=== PATIENT | female | born 1970 | race Caucasian/White ===

== ENCOUNTER 2022-02-21 11:52 | Emergency (ER) | payer MEDICAID, SELFPAY ==
[2022-02-21] VITALS (58 sets, daily range): BP systolic 103–133; BP diastolic 66–75; PULSE 55–104; RESP 12–29; O2SAT 92–100; BMI 20.1
--- NOTE | 2022-02-21 11:55 | XRR_ITS ---
PROCEDURE INFORMATION: Exam: XR Chest Exam date and time: 02/21/2022 12:09 PM Age: 52 years old Clinical indication: Pain; Other: Not specified; Additional info: Chest pain TECHNIQUE: Imaging protocol: Radiologic exam of the chest. Views: 1 view. COMPARISON: No relevant prior studies available. FINDINGS: Lungs: The lungs are overinflated consistent with pulmonary emphysema. No acute pulmonary infiltrates are seen. Pleural spaces: Unremarkable. No pleural effusion. No pneumothorax. Heart/Mediastinum: Unremarkable. No cardiomegaly. Bones/joints: Unremarkable. XR/XR chest 1V portable [id number] IMPRESSION: Pulmonary emphysema. No acute chest abnormality.
--- NOTE | 2022-02-21 11:56 | ECG_ITS ---
[facility] Test Date: 2022-02-21 Pat Name: Iliana Pete Department: Room: Gender: Female Blow Down Helper: : 1970 Requested By: Sukhi Martin Order Number: [id number] Rahat MD: Goldie Mcallister M.D. Measurements Intervals [place] Rate: 60 P: 69 [place]: 126 QRS: 71 QRSD: 78 T: 69 QT: 383 QTc: 384 Interpretive Statements SINUS RHYTHM POSSIBLE LEFT ATRIAL ENLARGEMENT [-0.1mV P-WAVE IN V1/V2] POSSIBLE RIGHT VENTRICULAR CONDUCTION DELAY [RSR (QR) IN V1/V2] ANTEROSEPTAL MYOCARDIAL INFARCTION , OF INDETERMINATE AGE [40+ ms Q WAVE IN V1-V4] No previous ECG available for comparison Electronically Signed On 02-21-2022 21:45:52 CDT by Goldie Mcallister M.D. [id number]
--- NOTE | 2022-02-21 11:56 | ED_ITS ---
HPI - Chest Pain General: Chief Complaint: Chest Pain Stated Complaint: chest pain Time Seen by Provider: 02/21/22 11:55 Source: patient Mode of arrival: ambulatory History of Present Illness: 52-year-old female with a history of coronary disease presents emergency room with complaint of substernal chest pain that woke her up this morning at 9 AM radiating to her left arm. She was given sublingual nitro and 324 of aspirin in route by EMS reports relief of chest pain. She has no chest pain at the time I seen the patient but she still has what she describes as a little pressure. No vomiting no nauseousness she had dyspnea and the radiation of pain earlier. She tells me about 2 years ago she had stents placed at [facility] after an episode of chest pain. She is unsure if she has had any stress testing since that time. Patient is not diabetic she does smoke is a history hypertension hyperlipidemia MD complaint: chest pain Pertinent past history: coronary artery disease Onset (ago): minute(s) Prior episodes: Yes Onset: during rest Pain location: substernal and left chest Pain radiation: left arm Severity: moderate Quality: sharp Relieving factors: nitroglycerin Exacerbating factors: nothing Associated symptoms: Deny abdominal pain, diaphoresis, dyspnea, fever(s), leg edema, nausea, palpitations, sense of impending doom, syncope or vomiting Treatment prior to arrival: none Review of Systems Const: Denies: fever(s), chills, fatigue, malaise or diaphoresis ENMT: Denies: throat pain, ear or mastoid pain, nasal discharge or nasal congestion Card: Reports: chest pain; Denies: palpitations, irregular heart rhythm, edema or syncope Resp: Denies: dyspnea GI: Denies: abdominal pain, nausea or vomiting : Denies: flank pain, difficulty voiding, dysuria, urinary frequency or urinary urgency Skin/Breast: Denies: rash or pruritus [facility] ED PFSH: Medical History (Updated 02/21/22 @ 17:19 by Sukhi Arevalo DO) CAD (coronary artery disease) HTN (hypertension) Hyperlipidemia Social History (Updated 02/21/22 @ 12:51 by Sukhi Arevalo DO) Smoking and tobacco status: current every day smoker Alcohol intake: unknown Physical Exam Const: GENERAL APPEARANCE: cooperative and comfortable ORIENTATION/CONSCIOUSNESS: Yes awake, Yes oriented to person, Yes oriented to place and Yes oriented to time HENMT: COMMON NORMALS: normocephalic, atraumatic and hearing grossly normal bilaterally HEAD & SCALP: normocephalic and atraumatic Resp: COMMON NORMALS: normal respiratory effort, No retractions, No use of accessory muscles and clear to auscultation bilaterally AUSCULTATION: clear to auscultation bilaterally Cardio: COMMON NORMALS: regular rate, regular rhythm and No murmurs present (Cardio) RATE: regular rate RHYTHM: regular rhythm GI: COMMON NORMALS: Soft to palpation and No hepatosplenomegaly present AUSCULTATION: Yes normoactive bowel sounds PALPATION: Yes Soft to palpation, No Tenderness to palpation present (GI), No Guarding due to palpation present (GI) and Yes No hepatosplenomegaly present Extremity: COMMON NORMALS: normal to inspection, capillary refill normal, no clubbing, cyanosis or edema, no calf tenderness and no pedal edema Neuro: SENSORIUM/ORIENTATION: Yes oriented to person, Yes oriented to place and Yes oriented to time Skin: COMMON NORMALS: no rashes or lesions noted GENERAL SKIN EXAM: no rashes or lesions noted Course Vital Signs: Vital signs: Vital Signs Pulse Rate 70 02/21/22 17:53 Respiratory Rate 18 02/21/22 17:53 Blood Pressure 127/73 02/21/22 17:53 Pulse Oximetry 94 02/21/22 17:53 Oxygen Delivery Me thod 02/21/22 11:55 Oxygen Flow Rate 3 02/21/22 11:55 MDM - Chest Pain Medical Decision Making EKG and cardiac enzymes are negative. Patient is pain-free at this time. We did get a copy of her Supply Chain Technician report from 3 months ago at [facility]. I reviewed it with Dr. Johnson who is on-call. Given the Supply Chain Technician report normal EKG and normal cardiac enzymes he recommended patients such as her to start isosorbide mononitrate and have her follow-up as an outpatient. Discussed with the patient part of the reasoning is at this point the Supply Chain Technician report shows relatively nor mal coronary arteries there is nothing we would be likely to intervene on when they did the cath they were not able to intervene on anything at that time it is unlikely in such a short period of time that anything is changed significantly she is no longer having symptoms. Dr. Johnson felt that in a patient like her repeating a cath this soon after the previous one with normal labs and resolved symptoms would not likely be helpful and stress test would also not likely be particularly helpful. Reviewed this with the patient she was comfortable proceeding with this she is advised to return to emergency room if she has any further chest pain was started on isosorbide mononitrate I also added Plavix 75 daily she previously had been on that and had been stopped. Given her history of having stents I think she would be well served by being blocked back on her Plavix. We will try to get her set up to see cardiology clinic here in town she just recently moved here. If she has recurrence of symptoms she was strongly encouraged to return immediately. Differential Diagnosis Likely acute massive pulmonary embolism and acute myocardial infarction Medical Records I reviewed the patient's medical records. Lab Data I reviewed the patient's lab results. : 02/21/22 13:48 02/21/22 13:48 Radiology Impressions Chest X-Ray 02/21/22 11:55 IMPRESSION: Pulmonary emphysema. No acute chest abnormality. Laboratory Results WBC 11.0 10^3/uL (4.0-10.0) H 02/21/22 13:48 RBC 4.77 10^6/uL (4.1-5.3) 02/21/22 13:48 Hgb 15.7 g/dL (11.5-15.3) H 02/21/22 13:48 Hct 45.7 % (37.0-47.0) 02/21/22 13:48 MCV 95.8 fl (81-99) 02/21/22 13:48 MCH 32.9 pg (28.0-34.0) 02/21/22 13:48 MCHC 34.4 g/dL (30.0-36.0) 02/21/22 13:48 RDW 12.7 % (12.1-15.1) 02/21/22 13:48 Plt Count 286 10^3/cmm (130-400) 02/21/22 13:48 MPV 9.6 fL (7.4-10.4) 02/21/22 13:48 Neut % (Auto) 77.3 % 02/21/22 13:48 Lymph % (Auto) 15.6 % 02/21/22 13:48 Emanuel % (Auto) 5.6 % 02/21/22 13:48 Eos % (Auto) 0.4 % 02/21/22 13:48 Baso % (Auto) 0.6 % 02/21/22 13:48 Neut # (Auto) 8.51 10^3/uL (1.8-7.7) H 02/21/22 13:48 Lymph # (Auto) 1.7 10^3/uL (0.8-4.8) 02/21/22 13:48 Emanuel # (Auto) 0.6 10^3/uL (0.2-0.9) 02/21/22 13:48 Eos # (Auto) 0.0 10^3/uL (0.0-0.8) 02/21/22 13:48 Baso # (Auto) 0.1 10^3/uL (0.0-0.1) 02/21/22 13:48 Nucleated RBC % (auto) 0 % 02/21/22 13:48 Nucleated RBCs # 0.0 /100WBC 02/21/22 13:48 Sodium 138 mmol/L (136-145) 02/21/22 13:48 Potassium 4.8 mmol/L (3.5-5.1) 02/21/22 13:48 Chloride 102 mmol/L (98-107) 02/21/22 13:48 Carbon Dioxide 23 mmol/L (22-29) 02/21/22 13:48 Anion Gap 17.8 (5-19) 02/21/22 13:48 BUN 9 mg/dL (6-20) 02/21/22 13:48 Creatinine 0.6 mg/dL (0.5-0.9) 02/21/22 13:48 GFR Calculation 104.6 mL/min (90-130) 02/21/22 13:48 Glucose 86 mg/dL (65-115) 02/21/22 13:48 Calculated Osmolality 284 mOsm/kg (285-295) L 02/21/22 13:48 Calcium 9.2 mg/dL (8.5-10.5) 02/21/22 13:48 Troponin T Baseline 9 ng/L (0-10) 02/21/22 13:48 Troponin T 120 Minute 8.71 ng/L (0-10) 02/21/22 16:03 Delta Troponin T -0.29 ABS# (0-10) L 02/21/22 16:03 Discharge Plan Discharge Patient Disposition: Home Clinical Impression: Chest pain, CAD (coronary artery disease), HTN (hypertension) Condition: Stable Prescriptions: New isosorbide mononitrate 30 mg tablet extended release 24 hr 30 mg PO DAILY Qty: 30 0RF clopidogrel 75 mg tablet 75 mg PO DAILY Qty: 30 0RF No Action Aspir-81 81 mg Tablet,Delayed Release (Dr/Ec) 81 mg PO BEDTIME Prilosec 20 mg Capsule,Delayed Release(Dr/Ec) 20 mg PO BEDTIME metoprolol succinate 25 mg Tablet Extended Release 24 Hr 25 mg PO BEDTIME albuterol sulfate 90 mcg/actuation Hfa Aerosol Inhaler 2 puff INHALATION QID PRN (Reason: Shortness Of Breath) Zetia 10 mg Tablet 10 mg PO BEDTIME Crestor 40 mg Tablet 40 mg PO BEDTIME budesonide-formoterol 80-4.5 mcg/actuation Hfa Aerosol Inhaler 1 puff INHALATION BID Discharge Orders: Discharge ED (Routine); Ordered 02/21/22 Ordered By: Sukhi Arevalo Discharge Diet: Usual diet Discharge Activity: Limit activity as instructed Patient Instructions: Opioid Safety, Pain Management Activity Restrictions/Additional Instructions: Continue baby aspirin daily start Plavix 75 once daily and isosorbide mononitrate 30 mg once daily. Case management will call and make you an appointment with the cardiology clinic at [facility]. If you have worsening symptoms return to the emergency room Coding Level of Care Code ED Underground Conduit Installer for Evonne Rousseau Exam Detailed
--- NOTE | 2022-02-21 12:12 | PC.NURSE ---
pt reports substernal chest pain and pressure that radiates through to her back. describes as aching, began worsening around 0830 this morning and has progressively worsened. pt reports initially had chest pressure that woke her up around 0530. reports nausea and vomiting, dizziness, and lightheadedness. also reports dyspnea that has resolved. lung sounds clear bilat
--- NOTE | 2022-02-21 13:02 | PC.NURSE ---
pt reports had a total of 324mg ASA prior to arrival. Pt c/o returning chest pain, Dr. Arevalo notified. New orders being placed
[2022-02-21] MEDS: ondansetron 2 mg/ML SDV 2 mL 4 MG IVP (13:11)
[2022-02-21] MEDS: morphine 4 mg/mL SDV 1 mL 2 MG IVP ×2 (13:18→16:39)
[2022-02-21] MEDS: nitroglycerin 1 gm/inch oint Pkt 1 INCH TOPICAL (13:23)
--- NOTE | 2022-02-21 13:35 | PC.NURSE ---
attempted venipuncture to obtain labs x2.
--- NOTE | 2022-02-21 13:48 | PC.NURSE ---
called lab for blood draw
[2022-02-21] MEDS: SODIUM CHLORIDE 0.9% 1700.97 ML IV (13:55)
--- NOTE | 2022-02-21 13:56 | ECG_ITS ---
[facility] Test Date: 2022-02-21 Pat Name: Iliana Pete Department: Room: Gender: Female Food And Beverage Controller: : 1970 Requested By: Sukhi Martin Order Number: [id number] Rahat MD: Goldie Mcallister M.D. Measurements Intervals [place] Rate: 55 P: 67 [place]: 129 QRS: 75 QRSD: 82 T: 74 QT: 417 QTc: 402 Interpretive Statements SINUS BRADYCARDIA POSSIBLE LEFT ATRIAL ENLARGEMENT [-0.1mV P-WAVE IN V1/V2] POSSIBLE RIGHT VENTRICULAR CONDUCTION DELAY [RSR (QR) IN V1/V2] ANTEROSEPTAL MYOCARDIAL INFARCTION , OF INDETERMINATE AGE [40+ ms Q WAVE IN V1-V4] No previous ECG available for comparison Electronically Signed On 02-21-2022 21:54:09 CDT by Goldie Mcallister M.D. [id number]
[2022-02-21 13:58] LABS: Basophils # 0.1 10^3/uL (0.0-0.1); Basophils % 0.6 %; Eosinophils % 0.4 %; Hematocrit 45.7 % (37.0-47.0); Hemoglobin 15.7 g/dL (11.5-15.3); Lymphocytes # 1.7 10^3/uL (0.8-4.8); Lymphocytes % 15.6 %; Mean Corpuscular HGB Conc 34.4 g/dL (30.0-36.0); Mean Corpuscular Hemoglobin 32.9 pg (28.0-34.0); Mean Corpuscular Volume 95.8 fl (81-99); Mean Platelet Volume 9.6 fL (7.4-10.4); Monocytes # 0.6 10^3/uL (0.2-0.9); Monocytes % 5.6 %; Neutrophils # 8.51 10^3/uL (1.8-7.7); Neutrophils % 77.3 %; Nucleated Red Blood Cells % 0 %; Platelet Count 286 10^3/cmm (130-400); Red Blood Count 4.77 10^6/uL (4.1-5.3); Red Cell Distribution Width 12.7 % (12.1-15.1)
[2022-02-21 14:19] LABS: Troponin(5th) Baseline 9 ng/L (0-10)
[2022-02-21 14:20] LABS: Anion Gap 17.8 (5-19); Blood Urea Nitrogen 9 mg/dL (6-20); Calcium 9.2 mg/dL (8.5-10.5); Carbon Dioxide 23 mmol/L (22-29); Chloride 102 mmol/L (98-107); Glomerular Filtration Rate 104.6 mL/min (90-130); Glucose 86 mg/dL (65-115); Osmolality Calculated 284 mOsm/kg (285-295); Potassium 4.8 mmol/L (3.5-5.1); Sodium 138 mmol/L (136-145)
[2022-02-21 16:36] LABS: Troponin 5 2HR 8.71 ng/L (0-10)
[2022-02-21 17:03] LABS: Troponin 5 2HR Delta -0.29 ABS# (0-10)
--- NOTE | 2022-02-22 08:29 | DCPLANNER ---
Addendum entered by Annie Johnson 04/28/22 11:39: Patient had a follow up appointment scheduled with heart care - appointment was cancelled Addendum entered by Annie Johnson 02/24/22 13:08: Patient has a follow up appointment scheduled for Sunday, April 19, 2022 at 2:[address] Ta at [facility]. Clinic will call patient with appointment information. Original Note: manager mobility had message to schedule a follow up appointment for patient with cardiology. manager mobility sent patients information to the front office staff heart care. Patients information will be printed and reviewed. Clinic will call patient with appointment information.
== END 2022-02-21 17:56 | disposition home or self-care (01) ==
PROVIDERS: Emergency Provider Family Medicine
DX: R07.9 Chest pain, unspecified (principal); I25.10 Atherosclerotic heart disease of native coronary artery without angina pectoris; I10 Essential (primary) hypertension; Z79.82 Long term (current) use of aspirin; E78.5 Hyperlipidemia, unspecified; F17.210 Nicotine dependence, cigarettes, uncomplicated
CPT/HCPCS: 36415; 71045; 80048; 84484; 85025; 93005; 96374; 96375; 96376; 99285; J2270; J2405; J7030

== ENCOUNTER 2022-05-18 09:30 | Inpatient (IN) | payer MEDICAID, SELFPAY ==
[2022-05-18] VITALS (90 sets, daily range): BP systolic 111–156; BP diastolic 64–89; PULSE 77–108; RESP 15–36; TEMP 36.8–37.6; O2SAT 84–96; BMI 20.9
--- NOTE | 2022-05-18 09:48 | XR_ITS ---
WS: [id number] Exam: XR chest 1V portable [id number] Date/Time of Exam: 05/18/2022 9:55 AM Reason For Exam: dyspnea/cough Comparison 02/21/2022. Small infiltrate is noted in the left lower lung zone suspicious for pneumonia. Remaining lungs are c lear and hyperinflated. Normal cardiomediastinal silhouette. No pleural effusions. Regional bony [place] ents are intact. XR/XR chest 1V portable [id number] IMPRESSION: 1. Small infiltrate in the left lower lung zone suspicious for pneumonia.
--- NOTE | 2022-05-18 10:00 | ECG_ITS ---
[facility] Test Date: 2022-05-18 Pat Name: Iliana Pete Department: Room: Gender: Female Elastic Assembler: : 1970 Requested By: Sukhi Martin Order Number: [id number] Rahat MD: Bette Tucker M.D. Measurements Intervals [place] Rate: 93 P: 79 [place]: 123 QRS: 83 QRSD: 73 T: 79 QT: 340 QTc: 423 Interpretive Statements SINUS RHYTHM POSSIBLE RIGHT VENTRICULAR CONDUCTION DELAY [RSR (QR) IN V1/V2] ANTEROSEPTAL MYOCARDIAL INFARCTION , OF INDETERMINATE AGE [40+ ms Q WAVE IN V1-V4] Compared to ECG 02/21/2022 13:40:39 Sinus bradycardia no longer present Myocardial infarct finding still present Electronically Signed On 05-18-2022 15:59:31 SUBCONTRACTS MANAGER by Bette Tucker M.D. [id number]
--- NOTE | 2022-05-18 10:11 | W.ED.SEIZURE ---
HPI - Seizure General: Chief Complaint: Seizure Stated Complaint: SEIZURE & CP Time Seen by Provider: 05/18/22 09:44 Source: patient Mode of arrival: EMS History of Present Illness: HPI Narrative: 52-year-old female presents emergency room with complaints of multiple seizures since 2 AM this morning. States she has a history of seizure disorder but she has not taken any medicines for about 5 years she was previously on Keppra. She does drink she reports drinking 5-6 shots per day plus several beers she did drink this morning because she thought she was not feeling well due to not having drank any alcohol. She has not previously had seizures specifically related to alcohol withdrawal. She denies any hematochezia melena hematemesis cough cramps no history of known alcoholic cirrhosis esophageal varices or upper GI bleeds. She reports having a seizure while in route to the hospital EMS did not observe any seizure activity. She was actually speaking during 1 of these episodes. MD complaint: possible seizure Onset (ago): hour(s) Witnessed: No Seizure History: Yes Place: Home Possible Precipitating Event: alcohol withdrawal Associated symptoms: Reports anorexia, malaise and weakness; Deny chest pain, chills, confusion, cough, diaphoresis, fever(s), rash, short of breath or syncope Treatments prior to arrival: none Review of Systems Const: Reports: malaise; Denies: fever(s), chills, fatigue or diaphoresis ENMT: Denies: throat pain, ear or mastoid pain, nasal discharge or nasal congestion Card: Denies: chest pain or syncope Resp: Denies: dyspnea, productive cough or non-productive cough GI: Denies: abdominal pain, nausea, vomiting, hematemesis, coffee ground emesis, diarrhea, constipation, bloating, hematochezia or melena : Denies: flank pain, difficulty voiding, dysuria, urinary frequency or urinary urgency Skin/Breast: Denies: rash or pruritus Neuro: Denies: confusion PFSH ED PFSH: Medical History (Updated 05/18/22 @ 13:58 by Sukhi Arevalo DO) CAD (coronary artery disease) COPD (chronic obstructive pulmonary disease) Fibromyalgia Gastroparesis GERD (gastroesophageal reflux disease) History of pancreatitis HTN (hypertension) Hyperlipidemia Tobacco dependency Surgical History (Updated 05/18/22 @ 12:26 by Max Martin MD) History of cholecystectomy History of coronary artery stent placement History of hernia repair History of hysterectomy Family History (Updated 05/18/22 @ 12:27 by Max Martin MD) Other Diabetes Social History (Updated 05/18/22 @ 12:27 by Max Martin MD) Smoking and tobacco status: current every day smoker Alcohol intake: current Alcohol intake frequency: 3 or more drinks per day Substance/Drug Use: current Substance/Drug use type: Marijuana Physical Exam Const: GENERAL APPEARANCE: cooperative and comfortable ORIENTATION/CONSCIOUSNESS: Yes awake, Yes oriented to person, Yes oriented to place and Yes oriented to time HENMT: COMMON NORMALS: normocephalic, atraumatic and hearing grossly normal bilaterally HEAD & SCALP: normocephalic and atraumatic Eye: COMMON NORMALS: Equal, round and reactive pupils present, EOMs intact bilaterally, conjunctivae normal and no scleral icterus CONJUNCTIVA: Yes conjunctivae normal PUPIL: Yes Equal, round and reactive pupils present Neck/C-Spine: COMMON NORMALS: full ROM, no lymphadenopathy, supple and no JVD Resp: COMMON NORMALS: normal respiratory effort, No retractions, No use of accessory muscles and clear to auscultation bilaterally AUSCULTATION: clear to auscultation bilaterally Cardio: COMMON NORMALS: no JVD, regular rate, regular rhythm and No murmurs present (Cardio) RATE: regular rate RHYTHM: regular rhythm GI: COMMON NORMALS: Soft to palpation and No hepatosplenomegaly present AUSCULTATION: Yes normoactive bowel sounds PALPATION: Yes Soft to palpation, No Tenderness to palpation present (GI), No Guarding due to palpation present (GI) and Yes No hepatosplenomegaly present Extremity: COMMON NORMALS: normal to inspection, capillary refill normal, no clubbing, cyanosis or edema, no calf tenderness and no pedal edema Neuro: SENSORIUM/ORIENTATION: Yes oriented to person, Yes oriented to place and Yes oriented to time Skin: COMMON NORMALS: no rashes or lesions noted GENERAL SKIN EXAM: no rashes or lesions noted Course Vital Signs: Vital signs: Vital Signs Temperature 98.3 F 05/18/22 11:00 Pulse Rate 86 05/18/22 12:09 Respiratory Rate 30 H 05/18/22 12:09 Blood Pressure 141/89 05/18/22 12:09 Pulse Oximetry 95 05/18/22 12:09 Oxygen Delivery Me thod 05/18/22 12:52 MDM - Seizure MDM Narrative Medical decision making narrative: Patient is a very mixed presentation. I am concerned she may be having alcohol withdrawal seizures. She does not really particular seem to be postictal and not witnessed any seizures in the 1 time she was stating she had a seizure she was asked able to verbalize according to EMS. However she does have elevated liver enzymes consistent with her drinking I am concerned about her reported history of previous withdrawal. Discussed with Dr. Sims will put her on observation [facility] protocol and monitor. She previously had been on Keppra was stopped by mutual decision because she did not seizure-free for an extended period of time at this time she does not wish to restart. Chest x-ray shows questionable pneumonia although she is at this point minimally symptomatic she has mildly increased respiratory rate but her oxygen sats are normal. Dr. Sims will be addressed. Lab Data 05/18/22 10:17 05/18/22 10:17 Labs: Radiology Impressions Chest X-Ray 05/18/22 09:48 IMPRESSION: 1. Small infiltrate in the left lower lung zone suspicious for pneumonia. Head CT 05/18/22 11:35 IMPRESSION: 1. No evidence of intracranial hemorrhage or mass effect. 2. No acute intracranial findings. Laboratory Results WBC 14.3 10^3/uL (4.0-10.0) H 05/18/22 10:17 RBC 4.60 10^6/uL (4.1-5.3) 05/18/22 10:17 Hgb 15.0 g/dL (11.5-15.3) 05/18/22 10:17 Hct 45.1 % (37.0-47.0) 05/18/22 10:17 MCV 98.0 fl (81-99) 05/18/22 10:17 MCH 32.6 pg (28.0-34.0) 05/18/22 10:17 MCHC 33.3 g/dL (30.0-36.0) 05/18/22 10:17 RDW 13.1 % (12.1-15.1) 05/18/22 10:17 Plt Count 248 10^3/cmm (130-400) 05/18/22 10:17 MPV 9.7 fL (7.4-10.4) 05/18/22 10:17 Neut % (Auto) 86.3 % 05/18/22 10:17 Lymph % (Auto) 4.9 % 05/18/22 10:17 [place] % (Auto) 7.6 % 05/18/22 10:17 Eos % (Auto) 0.1 % 05/18/22 10:17 Baso % (Auto) 0.3 % 05/18/22 10:17 Neut # (Auto) 12.36 10^3/uL (1.8-7.7) H 05/18/22 10:17 Lymph # (Auto) 0.7 10^3/uL (0.8-4.8) L 05/18/22 10:17 [place] # (Auto) 1.1 10^3/uL (0.2-0.9) H 05/18/22 10:17 Eos # (Auto) 0.0 10^3/uL (0.0-0.8) 05/18/22 10:17 Baso # (Auto) 0.0 10^3/uL (0.0-0.1) 05/18/22 10:17 Nucleated RBC % (auto) 0 % 05/18/22 10:17 Nucleated RBCs # 0.0 /100WBC 05/18/22 10:17 Sodium 137 mmol/L (136-145) 05/18/22 10:17 Potassium 4.7 mmol/L (3.5-5.1) 05/18/22 10:17 Chloride 100 mmol/L (98-107) 05/18/22 10:17 Carbon Dioxide 25 mmol/L (22-29) 05/18/22 10:17 Anion Gap 16.7 (5-19) 05/18/22 10:17 BUN 14 mg/dL (6-20) 05/18/22 10:17 Creatinine 0.7 mg/dL (0.5-0.9) 05/18/22 10:17 GFR Calculation 87.5 mL/min (90-130) L 05/18/22 10:17 Glucose 143 mg/dL (65-115) H 05/18/22 10:17 Calculated Osmolality 287 mOsm/kg (285-295) 05/18/22 10:17 Calcium 9.8 mg/dL (8.5-10.5) 05/18/22 10:17 Magnesium 1.6 mg/dL (1.7-2.3) L 05/18/22 11:37 Total Bilirubin 1.1 mg/dL (0.15-1.2) 05/18/22 10:17 AST 68 U/L (0-32) H 05/18/22 10:17 ALT 39 U/L (0-33) H 05/18/22 10:17 Alkaline Phosphatase 165 U/L (35-105) H 05/18/22 10:17 Creatine Kinase 84 U/L (26-192) 05/18/22 10:17 Total Protein 7.1 g/dL (6.6-8.7) 05/18/22 10:17 Albumin 4.1 g/dL (3.5-5.2) 05/18/22 10:17 Globulin 3.0 g/dL (1.3-4.6) 05/18/22 10:17 Lipase 24 U/L (13-60) 05/18/22 10:17 TSH 0.88 uIU/mL (0.27-4.20) 05/18/22 11:37 Urine Color Yellow (Yellow) 05/18/22 11:15 Urine Appearance Clear (CLEAR) 05/18/22 11:15 Urine pH 7 (5-7) 05/18/22 11:15 Ur Specific [place] 1.010 (1.005-1.030) 05/18/22 11:15 Urine Protein Trace (Negative) 05/18/22 11:15 Urine Glucose (UA) Norm (Normal) 05/18/22 11:15 Urine Ketones 1+ (Negative) H 05/18/22 11:15 Urine Blood Neg (Negative) 05/18/22 11:15 Urine Nitrate Negative (Negative) 05/18/22 11:15 Urine Bilirubin Neg (Negative) 05/18/22 11:15 Urine Urobilinogen Norm mg/dL (Negative) 05/18/22 11:15 Ur Leukocyte Esterase Trace (Negative) H 05/18/22 11:15 Urine RBC 0-4 /hpf (0-2) H 05/18/22 11:15 Urine WBC None /hpf (0-5) 05/18/22 11:15 Ur Squamous Epith Cells None /hpf (0-5) 05/18/22 11:15 Amorphous Sediment Not Reportable 05/18/22 11:15 Urine Bacteria Trace /hpf (NONE) 05/18/22 11:15 Salicylates 2.4 mg/dL (3-10) L 05/18/22 10:17 Urine Opiates Screen Negative ng/mL (Negative) 05/18/22 11:15 Acetaminophen < 5.0 ug/mL (10-30) L 05/18/22 10:17 Ur Barbiturates Screen Negative ng/mL (Negative) 05/18/22 11:15 Ur Phencyclidine Scrn Negative ng/mL (Negative) 05/18/22 11:15 Ur Amphetamines Screen Negative ng/mL (Negative) 05/18/22 11:15 U Benzodiazepines Scrn Positive ng/mL (Negative) H 05/18/22 11:15 Urine Cocaine Screen Negative ng/mL (Negative) 05/18/22 11:15 U Marijuana (THC) Screen Positive ng/mL (Negative) H 05/18/22 11:15 Ethyl Alcohol < 10 mg/dL (0-10) 05/18/22 10:17 Hepatitis A IgM Ab Non-reactive (Nonreactive) 05/18/22 11:37 Hep Bs Antigen Non-reactive (Nonreactive) 05/18/22 11:37 Hep B Core IgM Ab Non-reactive (Nonreactive) 05/18/22 11:37 Hepatitis C Antibody Non-reactive (Nonreactive) 05/18/22 11:37 Discharge Plan Discharge Patient Disposition: Admitted As Inpatient Admit Provider: Max Martin Clinical Impression: Seizure, Alcoholism, Transaminitis, Pneumonia, CAD (coronary artery disease), HTN (hypertension) Condition: Stable Coding Level of Care Code ED Tail Worker for Chg Fwd Exam Comprehensive
[2022-05-18] MEDS: LORazepam 2 mg/mL INJ 1 mL IVP ×3 (10:14→20:58)
[2022-05-18] MEDS: sodium chloride 0.9% 1,000 ML 999 ML IV ×2 (10:14→11:30)
[2022-05-18 10:30] LABS: Basophils % 0.3 %; Eosinophils % 0.1 %; Hematocrit 45.1 % (37.0-47.0); Lymphocytes # 0.7 10^3/uL (0.8-4.8); Lymphocytes % 4.9 %; Mean Corpuscular HGB Conc 33.3 g/dL (30.0-36.0); Mean Corpuscular Hemoglobin 32.6 pg (28.0-34.0); Mean Platelet Volume 9.7 fL (7.4-10.4); Monocytes # 1.1 10^3/uL (0.2-0.9); Monocytes % 7.6 %; Neutrophils # 12.36 10^3/uL (1.8-7.7); Neutrophils % 86.3 %; Nucleated Red Blood Cells % 0 %; Platelet Count 248 10^3/cmm (130-400); Red Cell Distribution Width 13.1 % (12.1-15.1); White Blood Count 14.3 10^3/uL (4.0-10.0)
[2022-05-18 10:55] LABS: Alanine Aminotransferase 39 U/L (0-33); Albumin Level 4.1 g/dL (3.5-5.2); Alkaline Phosphatase 165 U/L (35-105); Anion Gap 16.7 (5-19); Aspartate Amino Transferase 68 U/L (0-32); Blood Urea Nitrogen 14 mg/dL (6-20); Calcium 9.8 mg/dL (8.5-10.5); Carbon Dioxide 25 mmol/L (22-29); Chloride 100 mmol/L (98-107); Creatine Phosphokinase 84 U/L (26-192); Glomerular Filtration Rate 87.5 mL/min (90-130); Glucose 143 mg/dL (65-115); Lipase 24 U/L (13-60); Osmolality Calculated 287 mOsm/kg (285-295); Potassium 4.7 mmol/L (3.5-5.1); Salicylate 2.4 mg/dL (3-10); Sodium 137 mmol/L (136-145); Total Bilirubin 1.1 mg/dL (0.15-1.2); Total Protein 7.1 g/dL (6.6-8.7)
[2022-05-18 10:56] LABS: Acetaminophen < 5.0 ug/mL (10-30); Alcohol Level < 10 mg/dL (0-10)
[2022-05-18] MEDS: LORazepam 2 mg/mL INJ 1 mL 1 MG IVP (11:24)
[2022-05-18] MEDS: promethazine 25 mg/mL SDV 1 mL IM (11:25)
--- NOTE | 2022-05-18 11:35 | CT_ITS ---
WS: [id number] CT HEAD TECHNIQUE: Noncontrast CT of the head obtained from the skullbase to the vertex. CLINICAL INFORMATION: seizures COMPARISON: None. DLP: 1037.[address] scans at [facility] use at least one of these dose optimization techniques: automated e xposure control; mA and/or kV adjustment per patient size (includes targeted exams where dose is matc hed to clinical indication); or iterative reconstruction. FINDINGS: No evidence of intracranial hemorrhage or mass effect. Ventricular system and basal cisterns are mcgarry nt. No extra-axial fluid collections. No evidence of mass or mass effect. Normal wiseman-white different iation. Vascular calcification. Paranasal sinuses and mastoid air cells are well aerated. .Normal visualized soft tissues. CT/CT head wo con* [id number] IMPRESSION: 1. No evidence of intracranial hemorrhage or mass effect. 2. No acute intracranial findings.
[2022-05-18 11:37] LABS: Protein Urine Trace (Negative); Urine Appearance Clear (CLEAR); Urine Color Yellow (Yellow); pH Urine 7 (5-7)
--- NOTE | 2022-05-18 11:37 | PM.HP ---
Providers/Chief Complaint Admitting Physician: Max Martin MD Chief Complaint: SEIZURE & CP History of Present Illness Iliana Pete is a 52 year old female presenting to the emergency department with several complaints. The first complaint is seizures. She apparently had a seizure around 2 AM according to the patient. witnessed this, eyes rolled back of her head, she was not responsive, did not remember the event, and had a slow recovery. She reports at 6 AM she started having repetitive events but it is less clear if these were seizures or not. She states that for the last 2 to 3 days she has been have some vomiting, as well as diarrhea. reports a lot of the family members about the flu. She continues to drink, approximately 4-6 shots as well as some beer through the day and this ingestion may have been decreased with her vomiting. She is also using some marijuana. She relates she has had some chills, and sweating. She denies any significant blood in her emesis or stool. She has had a little bit of epigastric discomfort. She has prior history of seizure disorder, treated with Keppra. This was discontinued about 5 years ago after informed decision-making. It was thought her seizures were due to alcohol at that time. She does not want to go back on Keppra. At this point she does want to stop drinking. Review of Systems General: Reports: 10 or more systems reviewed and unremarkable except in HPI and below Const: Reports: chills, body aches and malaise; Denies: fever(s) Eyes: Denies: change in vision ENMT: Denies: throat pain Card: Denies: chest pain Resp: Denies: dyspnea GI: Reports: abdominal pain, nausea and vomiting; Denies: hematemesis, hematochezia or melena : Denies: flank pain Musc: Denies: neck pain Skin/Breast: Denies: rash Neuro: Reports: seizure-like activity; Denies: headache(s) Psych: Reports: anxiety and depression Endo: Denies: polyuria William/Lymph: Denies: easy bruising All/Imm: Denies: urticaria Medications/Allergies Home Medications Medication Instructions Recorded Confirmed Last Taken Type albuterol sulfate 90 mcg/actuation 2 puff inhalation QID PRN 02/21/22 05/18/22 Unknown History aerosol inhaler Shortness Of Breath aspirin 81 mg tablet,delayed 81 mg PO BEDTIME 02/21/22 05/18/22 2 Days Ago History release ~05/16/22 ezetimibe 10 mg tablet (Zetia) 10 mg PO BEDTIME 02/21/22 05/18/22 05/16/22 History metoprolol succinate 25 mg 25 mg PO BEDTIME 02/21/22 05/18/22 05/16/22 History tablet,extended release 24 hr omeprazole 20 mg capsule,delayed 20 mg PO BEDTIME 02/21/22 05/18/22 05/16/22 History release rosuvastatin 40 mg tablet (Crestor) 40 mg PO BEDTIME 02/21/22 05/18/22 05/16/22 History acetaminophen 500 mg tablet 500 - 1,000 mg PO Q6H PRN Pain 05/18/22 05/18/22 Unknown History budesonide-formoterol HFA 160 1 inh inhalation BID 05/18/22 05/18/22 Unknown History mcg-4.5 mcg/actuation aerosol inhaler (Symbicort) Allergies Allergy/AdvReac Type Severity Reaction Status Date / Time acetaminophen [From Vicodin] Allergy ADR-Vomitin Verified 02/21/22 12:27 g amitriptyline Allergy Unknown Verified 02/21/22 12:27 codeine Allergy Unknown Verified 05/18/22 11:45 diazepam [From Valium] Allergy ADR-Irritab Verified 02/21/22 12:27 le divalproex sodium Allergy ADR-Seizure Verified 05/18/22 11:45 [From Depakote] doxycycline Allergy Unknown Verified 05/18/22 11:45 erythromycin base Allergy ALGY-Rash Verified 02/21/22 12:27 hydrocodone [From Vicodin] Allergy ADR-Vomitin Verified 02/21/22 12:27 g morphine Allergy ADR-Vomitin Verified 05/18/22 11:45 g sertraline [From Zoloft] Allergy Unknown Verified 02/21/22 12:27 PFSH Acute PFSH: Medical History (Updated 05/18/22 @ 12:34 by Max Martin MD) CAD (coronary artery disease) COPD (chronic obstructive pulmonary disease) Fibromyalgia Gastroparesis GERD (gastroesophageal reflux disease) History of pancreatitis HTN (hypertension) Hyperlipidemia Tobacco dependency Surgical History (Updated 05/18/22 @ 12:26 by Max Martin MD) History of cholecystectomy History of coronary artery stent placement History of hernia repair History of hysterectomy Family History (Updated 05/18/22 @ 12:27 by Max Martin MD) Other Diabetes Social History (Updated 05/18/22 @ 12:27 by Max Martin MD) Smoking and tobacco status: current every day smoker Alcohol intake: current Alcohol intake frequency: 3 or more drinks per day Substance/Drug Use: current Substance/Drug use type: Marijuana Other PFSH information: Supplemental PFSH Information: History of feeding tube Vitals/I&O/Wt Last Vital Signs Temp 98.3 F 05/18/22 11:00 Pulse 77 05/18/22 11:30 Resp 18 05/18/22 11:30 BP 121/65 05/18/22 11:30 Pulse Ox 96 05/18/22 11:30 O2 Del Method 05/18/22 11:30 05/17/22 05/18/22 05/18/22 22:59 06:59 14:59 Intake Total 1000 / 1000 Balance 1000 / 1000 Weight last 48 hrs Weight 58.967 kg Physical Exam Narrative: General exam is a white female, somewhat sleepy, in no distress currently. She is alert and oriented. HEENT: Atraumatic and normocephalic. Pupils equally round. Oropharynx clear. Neck is supple no lymphadenopathy thyromegaly Cardiovascular regular rate and rhythm without murmur, no S3 or S4 Lungs clear no wheezing or crackles Abdomen is soft. Slight epigastric tenderness. No obvious organomegaly. exam is deferred Extremities no cyanosis clubbing or edema, cap refill brisk Skin no rash Neuro no obvious focal deficits. Data 05/18/22 10:17 05/18/22 10:17 Other Labs: Lipase is normal LFTs are elevated with AST of 68, ALT of 39, alk phos of 165 CK 84 Calcium 9.8 Magnesium not checked and low TSH normal Acute hepatitis panel negative Urine drug screen positive for benzodiazepines and marijuana. Acetaminophen level, salicylate level, alcohol level not significant Chest x-ray with left lung infiltrate CT head ordered and pending EKG demonstrates normal sinus rhythm, normal axis, poor R wave progression A&P Assessment and plan (1) Seizure: Patient had a seizure last night. This is most likely secondary to alcohol and/or potential withdrawal. Symptoms are little bit atypical on episodes this morning where she was still aware during the event. I had shared decision-making with her and she would like to not resume Keppra if possible. She believes her event may be secondary to illness, alcohol intake, electrolyte abnormality, etc. we will hold off on Keppra for now unless further events that are witnessed occur. (2) Intractable vomiting: May be secondary to alcoholic gastritis, her past history of gastroparesis, marijuana use, or even viral illness. Check influenza swabs, COVID Nausea control Rehydration Lipase was checked and normal Electrolyte correction as needed (3) Pneumonia: Outpatient, community-acquired. Cannot rule out aspiration. Rocephin, azithromycin Sputum culture (4) Alcoholism: CIWA protocol, thiamine, folate Monitor for any recurrent seizures (5) Transaminitis: Hepatitis panel negative. May be secondary to alcoholism. Recheck tomorrow. (6) Hyperglycemia: Check hemoglobin A1c (7) Tobacco dependency: Encourage cessation (8) Hypomagnesemia: Supplement with IV magnesium Recheck tomorrow Plan Coronary artery disease, stable, continue home medications COPD. No evidence of exacerbation Full code Lovenox for DVT prophylaxis Attestations Medical Necessity Statement*: May require less than 2 midnight stay for seizure. This is of course dependent upon no recurrent withdrawal symptoms, no recurrent seizures. If these occur she will need to be converted to regular admission. Secondary to possibility of seizure, and concern of withdrawal initially will make ICU. Critical Care Time: The high probability of a clinically significant, sudden or life threatening deterioration of the patient's [neurologic, metabolic, infectious/pulmonary] system(s) required my full and direct attention, intervention and personal management. The critical care time is as shown. This time is in addition to time spent performing any reported procedures but includes the following: [x] Data and vital sign review and interpretation [x] Patient assessment, examination and intervention [x] Documentation [x] Medication orders and management Critical Care Time (min): 47 Coding Level of Care Code Acute Code for [facility] Fwd Diagnoses Seizure R56.9 Intractable vomiting R11.10 Pneumonia J18.9 Alcoholism F10.20 Transaminitis R74.01 Hyperglycemia R73.9 Tobacco dependency F17.200 Hypomagnesemia E83.42
[2022-05-18 11:38] LABS: Add Urine Microscopic? YES; Bilirubin Urine Neg (Negative); Blood Urine Neg (Negative); Glucose Urine UA Norm (Normal); Ketones Urine 1+ (Negative); Leukocyte Esterase Urine Trace (Negative); Nitrate Urine Negative (Negative); Urobilinogen Urine Norm (Negative)
[2022-05-18 11:39] LABS: Amphetamines Screen Urine Negative (Negative); Bacteria Urine TRACE /hpf; Barbiturates Screen Urine Negative (Negative); Benzodiazepines Screen Urine Positive (Negative); Cocaine Screen Urine Negative (Negative); Opiate Screen Urine Negative (Negative); PCP Screen Urine Negative (Negative); RBC Urine 0-4 /hpf (0-2); THC Screen Urine Positive (Negative)
--- NOTE | 2022-05-18 11:46 | PC.PHAR ---
pt states she takes care of her own medications-pt states she is no longer taking plavix 75mg daily written on 02/21/22 or imdur er 30mg daily written 02/21/22 pt states not taken for a year-pt states she only takes the medications she brought in -
[2022-05-18] MEDS: multivitamin therapeutic Tablet 1 TAB PO (12:06)
[2022-05-18] MEDS: thiamine 100 mg Tablet PO (12:07)
[2022-05-18] MEDS: folic acid 1 mg Tablet PO (12:07)
[2022-05-18 12:19] LABS: Hepatitis A Antibody IgM Non-Reactive (Nonreactive); Hepatitis B Core IgM Non-Reactive (Nonreactive); Hepatitis B Surface Antigen Non-Reactive (Nonreactive); Hepatitis C Virus Antibody Non-Reactive (Nonreactive); Magnesium 1.6 mg/dL (1.7-2.3); Thyroid Stimulating Hormone 0.88 uIU/mL (0.27-4.20)
[2022-05-18 13:34] LABS: Influenza A by IFA negative (Negative); Influenza B by IFA negative (Negative)
[2022-05-18] MEDS: sodium chloride 0.9% 1,000 ML 100 ML IV (13:38)
[2022-05-18] MEDS: magnesium sulfate premix 2 GM/50 ML PIGGYBACK IV (13:41)
[2022-05-18] MEDS: pantoprazole 40 mg SDV IVP (13:43)
[2022-05-18] MEDS: azithromycin 500 MG in sodium chloride 0.9% 250 ML 250 MG IV (13:48)
[2022-05-18] MEDS: enoxaparin 40 mg/0.4 mL Syringe SUBCUT (14:01)
[2022-05-18] MEDS: cefTRIAXone 1,000 MG in sodium chloride 0.9% (plus) 50 ML 100 MG IV (14:02)
[2022-05-18] MEDS: nicotine 21 mg Patch 1 PATCH TRANSDERMA (14:02)
--- NOTE | 2022-05-18 14:09 | PC.NURSE ---
Patient arrived to ICU from ER. Patient is alert and orientated, sleepy from medication given earlier. Resting now with eyes closed.
[2022-05-18] MEDS: albuterol 2.5 mg/3 mL Neb INHALATION ×2 (15:07→19:46)
[2022-05-18 15:38] LABS: SARS Covid-2 Antigen Negative (Negative)
[2022-05-18] MEDS: ondansetron 2 mg/ML SDV 2 mL 4 MG IVP (16:28)
[2022-05-18 18:01] LABS: Adenovirus Not Detected (NOT DETECT); Chlamydia Pneumoniae Not Detected (NOT DETECT); Coronavirus 229E,HKU1,NL63,OC4 Not Detected (NOT DETECT); Human Metapneumovirus Not Detected (NOT DETECT); Human Rhinovirus/Enterovirus Not Detected (NOT DETECT); Influenza A Not Detected (NOT DETECT); Influenza A H1 Not Detected (NOT DETECT); Influenza A H1-2009 Not Detected (NOT DETECT); Influenza A H3 Not Detected (NOT DETECT); Influenza B Not Detected (NOT DETECT); Mycoplasma Pneumoniae Not Detected (NOT DETECT); Parainfluenza Virus Type 1 Not Detected (NOT DETECT); Parainfluenza Virus Type 2 Not Detected (NOT DETECT); Parainfluenza Virus Type 3 Not Detected (NOT DETECT); Parainfluenza Virus Type 4 Not Detected (NOT DETECT); Respiratory Syncytial Virus A Not Detected (NOT DETECT); Respiratory Syncytial Virus B Not Detected (NOT DETECT); SARS-COV-2 Not Detected (NOT DETECT)
--- NOTE | 2022-05-18 18:16 | PC.NURSE ---
Patients last CIWA was 14. Ativan given per MAR and protocol. Patient resting at this time. Clear liquid diet.
[2022-05-18] MEDS: budesonide 0.5 mg/2 mL Neb INHALATION (19:46)
[2022-05-18] MEDS: atorvastatin 40 mg Tablet 80 MG PO (20:42)
[2022-05-18] MEDS: metoprolol succinate ER (24 HR) 25 mg Tablet PO (20:43)
[2022-05-18] MEDS: aspirin 81 mg EC Tablet PO (20:43)
[2022-05-18] MEDS: ezetimibe 10 mg Tablet PO (20:57)
[2022-05-18] MEDS: ketorolac 30 mg/mL INJ 15 MG IVP (21:43)
--- NOTE | 2022-05-18 22:15 | PC.NURSE ---
Pain Medication Patient complaining of abdominal pain, rating it a 7 on a 1-[address] Quiroz contacted and telephone order received for 15 mg toradol IVP once. Medication administered, see MAR for details.
[2022-05-19] VITALS (89 sets, daily range): BP systolic 107–150; BP diastolic 60–93; PULSE 69–153; RESP 14–39; TEMP 36.4–36.8; O2SAT 86–99; BMI 20.9
[2022-05-19] MEDS: sodium chloride 0.9% 1,000 ML 100 ML IV ×3 (00:10→18:27)
[2022-05-19] MEDS: pantoprazole 40 mg SDV IVP ×2 (00:10→12:09)
[2022-05-19] MEDS: LORazepam 2 mg/mL INJ 1 mL IVP ×5 (02:34→18:27)
[2022-05-19 03:10] LABS: Basophils % 0.5 %; Eosinophils # 0.1 10^3/uL (0.0-0.8); Eosinophils % 1.3 %; Hematocrit 38.8 % (37.0-47.0); Hemoglobin 12.5 g/dL (11.5-15.3); Lymphocytes # 1.2 10^3/uL (0.8-4.8); Lymphocytes % 22.2 %; Mean Corpuscular HGB Conc 32.2 g/dL (30.0-36.0); Mean Corpuscular Hemoglobin 33.6 pg (28.0-34.0); Mean Platelet Volume 9.9 fL (7.4-10.4); Monocytes # 0.4 10^3/uL (0.2-0.9); Monocytes % 7.7 %; Neutrophils % 67.9 %; Nucleated Red Blood Cells % 0 %; Platelet Count 179 10^3/cmm (130-400); Red Blood Count 3.72 10^6/uL (4.1-5.3); Red Cell Distribution Width 13.2 % (12.1-15.1); White Blood Count 5.6 10^3/uL (4.0-10.0)
[2022-05-19 03:41] LABS: Alanine Aminotransferase 25 U/L (0-33); Albumin Level 3.3 g/dL (3.5-5.2); Alkaline Phosphatase 122 U/L (35-105); Blood Urea Nitrogen 10 mg/dL (6-20); Calcium 8.1 mg/dL (8.5-10.5); Carbon Dioxide 21 mmol/L (22-29); Chloride 109 mmol/L (98-107); Globulin 1.9 g/dL (1.3-4.6); Glomerular Filtration Rate 104.6 mL/min (90-130); Glucose 81 mg/dL (65-115); Osmolality Calculated 286 mOsm/kg (285-295); Sodium 139 mmol/L (136-145); Total Bilirubin 0.7 mg/dL (0.15-1.2); Total Protein 5.2 g/dL (6.6-8.7)
[2022-05-19 03:45] LABS: Magnesium 2.1 mg/dL (1.7-2.3)
[2022-05-19 04:20] LABS: Mean Corpuscular Volume 104.3 fl (81-99)
[2022-05-19 04:24] LABS: Anion Gap 13.1 (5-19); Aspartate Amino Transferase 38 U/L (0-32); Potassium 4.1 mmol/L (3.5-5.1)
[2022-05-19] MEDS: albuterol 2.5 mg/3 mL Neb INHALATION ×4 (07:41→19:41)
[2022-05-19] MEDS: budesonide 0.5 mg/2 mL Neb INHALATION ×2 (07:41→19:41)
[2022-05-19] MEDS: multivitamin therapeutic Tablet 1 TAB PO (08:28)
[2022-05-19] MEDS: folic acid 1 mg Tablet PO (08:28)
[2022-05-19] MEDS: nicotine 21 mg Patch 1 PATCH TRANSDERMA (08:28)
[2022-05-19] MEDS: thiamine 100 mg Tablet PO (08:28)
--- NOTE | 2022-05-19 09:47 | PM.PN ---
Subjective Subjective: Patient reports some shakiness this morning. She had several doses of Ativan through the night. Nurse called me after I saw the patient and reports she had a very short event where she became rigid, less responsive, less than a minute, with return to normalcy without significant postictal state. Patient reports this is consistent with her previous seizures from alcohol withdrawal. Medications: Reviewed: Yes Vitals/I&O/Wt Last Vital Signs Temp 97.7 F 05/19/22 04:00 Pulse 92 05/19/22 08:15 Resp 20 H 05/19/22 08:15 BP 131/68 05/19/22 08:15 Pulse Ox 93 05/19/22 08:15 O2 Del Method 05/19/22 07:41 O2 Flow Rate 2 05/19/22 04:00 05/18/22 05/19/22 05/19/22 22:59 06:59 14:59 Intake Total 812 / 2812 1000 / 3812 1076.667 / 1076.667 Output Total 500 / 500 Balance 812 / 2812 500 / 3312 1076.667 / 1076.667 Weight last 48 hrs Weight 58.967 kg Weight 58.967 kg Physical Exam Narrative: General exam is a white female, alert, oriented, somewhat shaky Neck is supple no lymphadenopathy thyromegaly Cardiovascular regular rate and rhythm without murmur, no S3 or S4 Lungs clear no wheezing or crackles Abdomen is soft. Slight epigastric tenderness. No obvious organomegaly. Extremities no cyanosis clubbing or edema, cap refill brisk Skin no rash Neuro no obvious focal deficits. Data 05/19/22 02:26 05/19/22 02:26 A&P Assessment and plan (1) Seizure: Concern of alcohol withdrawal seizures. She had not had any since admission, until a short period of unresponsiveness with no postictal state this morning. Initiate phenobarbital. 130 mg IV now x1. Will redose based on symptoms and sedation. Choosing lower dose secondary to concomitant Ativan therapy. Monitor closely for oversedation. (2) Intractable vomiting: May be secondary to alcoholic gastritis, her past history of gastroparesis, marijuana use, or even viral illness. Check influenza swabs, COVID negative Nausea control Rehydration Lipase was checked and normal Electrolyte correction as needed This has abated (3) Pneumonia: Outpatient, community-acquired. Cannot rule out aspiration. Continue Rocephin, azithromycin Sputum culture COVID, influenza negative (4) Alcoholism: CIWA protocol, thiamine, folate Secondary to concern of seizures add phenobarbital (5) Transaminitis: Hepatitis panel negative. May be secondary to alcoholism. Improved today (6) Hyperglycemia: Mild on admission, normal today (7) Tobacco dependency: Encourage cessation (8) Hypomagnesemia: Supplement with IV magnesium Normal today Plan Coronary artery disease, stable, continue home medications COPD. No evidence of exacerbation Full code Lovenox for DVT prophylaxis Attestations Medical Necessity Statement*: Needs continued hospitalization in the ICU secondary to alcohol withdrawal with concern of seizure episodes Critical Care Time: The high probability of a clinically significant, sudden or life threatening deterioration of the patient's [neurologic, metabolic, infectious] system(s) required my full and direct attention, intervention and personal management. The critical care time is as shown. This time is in addition to time spent performing any reported procedures but includes the following: [x] Data and vital sign review and interpretation [x] Patient assessment, examination and intervention [x] Documentation [x] Medication orders and management Critical Care Time (min): 35 Coding Level of Care Code Acute Code for [facility] Fwd Diagnoses Seizure R56.9 Intractable vomiting R11.10 Pneumonia J18.9 Alcoholism F10.20 Transaminitis R74.01 Hyperglycemia R73.9 Tobacco dependency F17.200 Hypomagnesemia E83.42
[2022-05-19] MEDS: PHENobarbital 130 mg/mL SDV 1 mL IV ×4 (10:00→18:45)
--- NOTE | 2022-05-19 10:27 | PC.CHAP ---
Pastoral Care Encounter/Spiritual Assessment Type of Contact [] Declined pigment grinder visit [] Patient/Family/Request visit [] Outpatient visit [] Follow-up visit [] Physician referral [] Code/Alert [x] Routine visit [] Staff referral [] Actively dying [x] Patient sleeping [] Family support [] [] Out of room [] Palliative care [] [] Receiving care in room [] Pre-surgical visit [] Trauma [] Long length of stay [x] ICU visit [] Other: Relational/Emotional Strength [] Patient feels connected with others/family/visitors/staff [] Distress [] Loneliness/isolation [] Abandonment Spirituality of Patient [] Person of Charo [] Attends Tenriism of their Charo [] Believes in Prayer [] Reads Bible or Buddhist materials [] There are Spiritual issues to be addressed Form Setter Interventions [x] Prayer [] Active listening [] Non-anxious presence [] Spiritual/emotional support [] Crisis/trauma care [] Spiritual counseling [] Bereavement support [] Provided bereavement packet [] Provided Bible/devotional materials [] Provided toy/stuffed animal, coloring book to patient or family member [] Provided Communion [] Anointing/[place] [] Salvation [x] Completed spiritual assessment [] Other: Impact on Illness or Injury [] Angry [] Fearful [] Anxious [] Often cries [] Exhaustion [] Unable to work [] Unable to attend anglican [] Unable to walk/stand [] Unable to read [] Unable to drive [] Unable to eat/drink [] Unable to sleep [] Unable to be with family [] Patient intubated [] Other: Summary Time spent with patient
[2022-05-19] MEDS: azithromycin 500 MG in sodium chloride 0.9% 250 ML 250 MG IV (12:09)
[2022-05-19] MEDS: cefTRIAXone 1,000 MG in sodium chloride 0.9% (plus) 50 ML 100 MG IV (12:11)
[2022-05-19] MEDS: enoxaparin 40 mg/0.4 mL Syringe SUBCUT (12:12)
--- NOTE | 2022-05-19 18:12 | PC.NURSE ---
Patient requesting ativan, primary nurse in another patient room, charge nurse went to room to assist patient, patient then said I'm going to have a seizure, upon assessment by charge nurse patient would pull back from nurse in a fighting manner, not typical of a seizure activity. Dr. Martin aware of patients condition.
--- NOTE | 2022-05-19 18:29 | PC.NURSE ---
Patient tearful this shift, complaint with cares
[2022-05-19] MEDS: ondansetron 2 mg/ML SDV 2 mL 4 MG IVP (19:42)
[2022-05-19] MEDS: aspirin 81 mg EC Tablet PO (21:25)
[2022-05-19] MEDS: atorvastatin 40 mg Tablet 80 MG PO (21:25)
[2022-05-19] MEDS: metoprolol succinate ER (24 HR) 25 mg Tablet PO (21:25)
[2022-05-19] MEDS: ezetimibe 10 mg Tablet PO (21:25)
[2022-05-20] VITALS (55 sets, daily range): BP systolic 119–165; BP diastolic 58–93; PULSE 68–104; RESP 16–35; TEMP 36.4–36.6; O2SAT 85–96; BMI 20.9
[2022-05-20] MEDS: pantoprazole 40 mg SDV IVP ×2 (00:18→12:19)
[2022-05-20] MEDS: LORazepam 2 mg/mL INJ 1 mL IVP ×2 (00:18→23:16)
--- NOTE | 2022-05-20 03:28 | CTR_ITS ---
PROCEDURE INFORMATION: Exam: CT Head Without Contrast Exam date and time: 05/20/2022 3:48 AM Age: 52 years old Clinical indication: Other: Neurological change TECHNIQUE: Imaging protocol: Computed tomography of the head without contrast. Radiation optimization: All CT scans at this facility use at least one of these dose optimization techniques: automated exposure control; mA and/or kV adjustment per patient size (includes targeted exams where dose is matched to clinical indication); or iterative reconstruction. Other protocol: This patient has received [address] and 0 known cardiac nuclear medicine studies in the 12 months prior to the current study. COMPARISON: CT head wo con* [id number] 05/18/2022 12:31 PM RADIATION DOSE METRICS: Total DLP (mGy-cm): 1152.3 FINDINGS: Brain: Normal. No hemorrhage. Unremarkable white matter. No mass effect. Cerebral ventricles: No ventriculomegaly. Paranasal sinuses: Visualized sinuses are unremarkable. No fluid levels. Mastoid air cells: Visualized mastoid air cells are well aerated. Bones/joints: Unremarkable. No acute fracture. Soft tissues: Unremarkable. Other findings: Evaluation is limited by motion artifact. CT/CT head wo con* [id number] IMPRESSION: No acute intracranial abnormality.
--- NOTE | 2022-05-20 03:45 | PC.NURSE ---
Pain, CT At 0245, patient complaining of persistent headache, rating it a 6 on a 1-10 numerical scale. No pain medication order active. Dr. Quiroz contacted and order received for 15 mg toradol IVP PRN Q8H for pain. When in room to administer pain medication at around 0315, patient found to be lethargic, confused to time, and stating that she is very dizzy with blurry vision. Patient vital signs stable, no facial droop or one sided weakness noted. Dr. Quiroz contacted again and order received for a stat head CT. See MAR for medication administration.
[2022-05-20] MEDS: ketorolac 30 mg/mL INJ 15 MG IVP ×2 (04:18→22:50)
[2022-05-20 04:29] LABS: Glucose Point of Care 77 mg/dL (70-110)
[2022-05-20 05:32] LABS: Basophils # 0.1 10^3/uL (0.0-0.1); Eosinophils # 0.1 10^3/uL (0.0-0.8); Eosinophils % 2.4 %; Hematocrit 40.2 % (37.0-47.0); Hemoglobin 13.5 g/dL (11.5-15.3); Lymphocytes # 1.8 10^3/uL (0.8-4.8); Lymphocytes % 29.5 %; Mean Corpuscular HGB Conc 33.6 g/dL (30.0-36.0); Mean Corpuscular Hemoglobin 33.4 pg (28.0-34.0); Mean Corpuscular Volume 99.5 fl (81-99); Mean Platelet Volume 10.9 fL (7.4-10.4); Monocytes # 0.6 10^3/uL (0.2-0.9); Monocytes % 9.8 %; Neutrophils # 3.35 10^3/uL (1.8-7.7); Neutrophils % 56.3 %; Nucleated Red Blood Cells % 0 %; Platelet Count 175 10^3/cmm (130-400); Red Blood Count 4.04 10^6/uL (4.1-5.3); Red Cell Distribution Width 12.7 % (12.1-15.1); White Blood Count 5.9 10^3/uL (4.0-10.0)
[2022-05-20] MEDS: albuterol 2.5 mg/3 mL Neb INHALATION ×3 (07:37→15:20)
[2022-05-20] MEDS: budesonide 0.5 mg/2 mL Neb INHALATION (07:37)
[2022-05-20] MEDS: nicotine 21 mg Patch 1 PATCH TRANSDERMA (08:35)
[2022-05-20] MEDS: multivitamin therapeutic Tablet 1 TAB PO (08:35)
[2022-05-20] MEDS: LORazepam 2 mg Tablet PO ×2 (08:35→18:52)
[2022-05-20] MEDS: thiamine 100 mg Tablet PO (08:35)
[2022-05-20] MEDS: folic acid 1 mg Tablet PO (08:35)
[2022-05-20] MEDS: sodium chloride 0.9% 1,000 ML 100 ML IV (08:46)
--- NOTE | 2022-05-20 10:58 | P.PN_ITS ---
Subjective Subjective: Patient was very anxious Still having some tremors however no active seizure CT head unremarkable CBC is unremarkable, CMP mag and phosphorus is pending Patient drinks a combination of beer and whiskey Lives with her at home, had 1 episode of emesis this morning, she is also experiencing semisolid stools for last 2 days Vitals/I&O/Wt Last Vital Signs Temp 97.5 F L 05/20/22 04:00 Pulse 74 05/20/22 08:00 Resp 21 H 05/20/22 08:00 BP 151/81 05/20/22 08:00 Pulse Ox 94 05/20/22 08:00 O2 Del Method 05/20/22 07:20 O2 Flow Rate 2 05/19/22 04:00 05/19/22 05/20/22 05/20/22 22:59 06:59 14:59 Intake Total 1141.667 / 2618.334 180 / 2798.334 1000 / 1000 Output Total 950 / 950 Balance 1141.667 / 2618.334 -770 / 4692.230 0046 / 1000 Weight last 48 hrs Weight 58.967 kg Weight 58.967 kg Physical Exam Narrative: Patient was very anxious when entered the room Tremulous No active headache Able to follow commands Nonfocal neuro exam Awake and alert Eating breakfast Abdomen soft nontender Clinically looks slightly dehydrated Hemodynamically stable, currently on room air Able to answer questions No audible stridor or wheezing Data 05/20/22 04:37 05/20/22 06:18 A&P Assessment and plan (1) Transaminitis: (2) Alcoholism: (3) Pneumonia: (4) Intractable vomiting: (5) Seizure: (6) Hypomagnesemia: (7) Hyperglycemia: Plan Alcohol abuse Active withdrawal I agree with low-dose phenobarbital Alcohol-related gastritis?: I have added sucralfate to her Protonix Tested positive for marijuana which can cause cyclical vomiting as well Hypomagnesemia: Electrolyte: Replenished Community-acquired pneumonia, switch to Augmentin along with levofloxacin, d iscontinue IV azithromycin which could be causing diarrhea as well Full code Change diet to GI soft Continue ICU for now Patient lives with her Continue IV fluid hydration for 1 more day, likely will discontinue IV fluids tomorrow if no episodes of emesis Alcohol hepatosis: Transaminases improving Attestations Medical Necessity Statement*: Continue ICU management Time Spent in Patient Care: 30 Coding Level of Care Code Acute Code for [facility] Fwd Diagnoses Transaminitis R74.01 Alcoholism F10.20 Pneumonia J18.9 Intractable vomiting R11.10 Seizure R56.9 Hypomagnesemia E83.42 Hyperglycemia R73.9
[2022-05-20] MEDS: sucralfate 1 gm Tablet PO ×3 (12:18→20:11)
[2022-05-20] MEDS: cefTRIAXone 1,000 MG in sodium chloride 0.9% (plus) 50 ML 100 MG IV (12:18)
[2022-05-20] MEDS: enoxaparin 40 mg/0.4 mL Syringe SUBCUT (12:19)
--- NOTE | 2022-05-20 13:43 | PC.NURSE ---
up in room to bsc voiding frequent, noted episodes of tearful and other anxious po medication given frequently take off blood pressure cuff and other lines monitor vs at this time
--- NOTE | 2022-05-20 17:08 | PC.NURSE ---
Bag of home meds in prescription bottles,found in patient room. Bag of meds labeled with patient label and placed in [facility].
[2022-05-20] MEDS: amoxicillin-clav 875-125 mg Tablet 1 TAB PO (17:54)
[2022-05-20] MEDS: aspirin 81 mg EC Tablet PO (20:11)
[2022-05-20] MEDS: metoprolol succinate ER (24 HR) 25 mg Tablet PO (20:11)
[2022-05-20] MEDS: ondansetron 2 mg/ML SDV 2 mL 4 MG IVP (21:58)
[2022-05-20 22:20] LABS: Alanine Aminotransferase 37 U/L (0-33); Albumin Level 3.7 g/dL (3.5-5.2); Alkaline Phosphatase 164 U/L (35-105); Anion Gap 12.5 (5-19); Aspartate Amino Transferase 67 U/L (0-32); Blood Urea Nitrogen 6 mg/dL (6-20); Calcium 9.1 mg/dL (8.5-10.5); Carbon Dioxide 26 mmol/L (22-29); Chloride 103 mmol/L (98-107); Glomerular Filtration Rate 87.5 mL/min (90-130); Glucose 146 mg/dL (65-115); Magnesium 1.6 mg/dL (1.7-2.3); Osmolality Calculated 286 mOsm/kg (285-295); Phosphorus 2.4 mg/dL (2.5-4.5); Potassium 3.5 mmol/L (3.5-5.1); Sodium 138 mmol/L (136-145); Total Bilirubin 0.3 mg/dL (0.15-1.2); Total Protein 6.7 g/dL (6.6-8.7)
[2022-05-21] VITALS (56 sets, daily range): BP systolic 106–150; BP diastolic 52–97; PULSE 56–101; RESP 13–28; TEMP 36.4–36.6; O2SAT 83–100; BMI 20.6
[2022-05-21] MEDS: pantoprazole 40 mg SDV IVP ×2 (00:34→12:19)
[2022-05-21 06:00] LABS: Alanine Aminotransferase 35 U/L (0-33); Albumin Level 3.3 g/dL (3.5-5.2); Alkaline Phosphatase 154 U/L (35-105); Blood Urea Nitrogen 5 mg/dL (6-20); Calcium 8.9 mg/dL (8.5-10.5); Carbon Dioxide 22 mmol/L (22-29); Chloride 104 mmol/L (98-107); Globulin 3.2 g/dL (1.3-4.6); Glomerular Filtration Rate 104.6 mL/min (90-130); Glucose 74 mg/dL (65-115); Magnesium 1.9 mg/dL (1.7-2.3); Osmolality Calculated 284 mOsm/kg (285-295); Phosphorus 3.4 mg/dL (2.5-4.5); Sodium 139 mmol/L (136-145); Total Bilirubin 0.4 mg/dL (0.15-1.2); Total Protein 6.5 g/dL (6.6-8.7)
[2022-05-21 06:02] LABS: Anion Gap 16.9 (5-19)
[2022-05-21 06:03] LABS: Aspartate Amino Transferase 54 U/L (0-32); Potassium 3.9 mmol/L (3.5-5.1)
[2022-05-21] MEDS: sucralfate 1 gm Tablet PO ×4 (06:42→21:17)
[2022-05-21] MEDS: albuterol 2.5 mg/3 mL Neb INHALATION ×4 (07:57→19:42)
[2022-05-21] MEDS: budesonide 0.5 mg/2 mL Neb INHALATION ×2 (07:57→19:42)
[2022-05-21] MEDS: multivitamin therapeutic Tablet 1 TAB PO (08:29)
[2022-05-21] MEDS: thiamine 100 mg Tablet PO (08:29)
[2022-05-21] MEDS: folic acid 1 mg Tablet PO (08:29)
[2022-05-21] MEDS: nicotine 21 mg Patch 1 PATCH TRANSDERMA (08:29)
[2022-05-21] MEDS: amoxicillin-clav 875-125 mg Tablet 1 TAB PO ×2 (08:29→18:01)
[2022-05-21] MEDS: LORazepam 2 mg Tablet PO ×3 (08:47→21:17)
--- NOTE | 2022-05-21 09:36 | PC.NURSE ---
very tearful and anxious this am loose bm noted spec down to lab, voiding freely frequent take monitor lead off and lines. anxiety medication given
--- NOTE | 2022-05-21 10:52 | PM.PN ---
Subjective Subjective: Patient is stating that she is still experiencing loose stools, she had 2 episodes of vomiting yesterday Still very anxious and tremulous Vitals/I&O/Wt Last Vital Signs Temp 97.5 F L 05/21/22 09:00 Pulse 90 05/21/22 09:00 Resp 19 H 05/21/22 09:00 BP 120/97 05/21/22 09:00 Pulse Ox 95 05/21/22 09:00 O2 Del Method 05/21/22 07:40 O2 Flow Rate 3 05/21/22 06:00 05/20/22 05/21/22 05/21/22 22:59 06:59 14:59 Intake Total 995 / 2445 372 / 2817 250 / 250 Output Total 750 / 750 200 / 950 300 / 300 Balance 245 / 1695 172 / 1867 -50 / -50 Weight last 48 hrs Weight 57.969 kg Weight 58.967 kg Physical Exam Narrative: Patient is looking well hydrated today as compared to yesterday Much more awake and alert No active wheezing or crackles Doing well on room air Abdomen soft Mild tremors noted Awake and alert nonfocal neuro exam S1, S2 No audible stridor or wheezing Data 05/20/22 04:37 05/21/22 03:30 A&P Assessment and plan (1) Hypomagnesemia: (2) Hyperglycemia: (3) Transaminitis: (4) Alcoholism: (5) Pneumonia: (6) Intractable vomiting: (7) Seizure: Plan Alcohol-related withdrawal seizures No recurrence of seizure over the weekend Patient has Ativan and phenobarb for as needed use CIWA less than 6 today Monitor for 1 more day Request PT evaluation Alcohol-related gastritis she has been getting Protonix and sucralfate Diarrhea: Rule out C. difficile if she gets recurrent diarrhea I have discontinued azithromycin yesterday, which should improve her diarrheal episodes ICU nurse updated Hypoxia: Resolved Currently doing well on room air Electrolyte imbalance, normal potassium and magnesium Gi soft diet Full ocde PT eval today Continue icu care for now May need medsurg bed by tomorrow Agreeable to go to rehab if needed Attestations Medical Necessity Statement*: Continue ICU management Time Spent in Patient Care: 30 Coding Level of Care Code Acute Code for [facility] Fwd Diagnoses Hypomagnesemia E83.42 Hyperglycemia R73.9 Transaminitis R74.01 Alcoholism F10.20 Pneumonia J18.9 Intractable vomiting R11.10 Seizure R56.9
[2022-05-21] MEDS: enoxaparin 40 mg/0.4 mL Syringe SUBCUT (12:18)
[2022-05-21] MEDS: ondansetron 2 mg/ML SDV 2 mL 4 MG IVP (19:48)
[2022-05-21] MEDS: metoprolol succinate ER (24 HR) 25 mg Tablet PO (21:16)
[2022-05-21] MEDS: aspirin 81 mg EC Tablet PO (21:17)
[2022-05-22] VITALS (41 sets, daily range): BP systolic 89–137; BP diastolic 57–89; PULSE 74–106; RESP 14–30; TEMP 36.6–37.2; O2SAT 89–98; BMI 20.6
[2022-05-22] MEDS: pantoprazole 40 mg SDV IVP ×2 (00:50→11:30)
[2022-05-22 03:09] LABS: Alanine Aminotransferase 31 U/L (0-33); Albumin Level 3.1 g/dL (3.5-5.2); Alkaline Phosphatase 127 U/L (35-105); Anion Gap 15.5 (5-19); Aspartate Amino Transferase 40 U/L (0-32); Blood Urea Nitrogen 5 mg/dL (6-20); Calcium 8.4 mg/dL (8.5-10.5); Carbon Dioxide 24 mmol/L (22-29); Chloride 104 mmol/L (98-107); Globulin 2.5 g/dL (1.3-4.6); Glomerular Filtration Rate 129.1 mL/min (90-130); Glucose 86 mg/dL (65-115); Osmolality Calculated 287 mOsm/kg (285-295); Potassium 3.5 mmol/L (3.5-5.1); Sodium 140 mmol/L (136-145); Total Bilirubin 0.2 mg/dL (0.15-1.2); Total Protein 5.6 g/dL (6.6-8.7)
[2022-05-22] MEDS: sucralfate 1 gm Tablet PO ×4 (06:06→20:57)
[2022-05-22] MEDS: albuterol 2.5 mg/3 mL Neb INHALATION ×3 (07:47→21:03)
[2022-05-22] MEDS: budesonide 0.5 mg/2 mL Neb INHALATION ×2 (07:47→21:03)
[2022-05-22] MEDS: nicotine 21 mg Patch 1 PATCH TRANSDERMA (08:29)
[2022-05-22] MEDS: folic acid 1 mg Tablet PO (08:31)
[2022-05-22] MEDS: thiamine 100 mg Tablet PO (08:31)
[2022-05-22] MEDS: amoxicillin-clav 875-125 mg Tablet 1 TAB PO ×2 (08:31→17:06)
[2022-05-22] MEDS: multivitamin therapeutic Tablet 1 TAB PO (08:31)
[2022-05-22] MEDS: LORazepam 2 mg Tablet PO (10:14)
[2022-05-22] MEDS: ketorolac 30 mg/mL INJ 15 MG IVP ×2 (10:19→16:45)
--- NOTE | 2022-05-22 10:23 | PC.CHAP ---
Pastoral Care Encounter/Spiritual Assessment Type of Contact [] Declined powder worker visit [] Patient/Family/Request visit [] Outpatient visit [] Follow-up visit [] Physician referral [] Code/Alert [x] Routine visit [] Staff referral [] Actively dying [] Patient sleeping [] Family support [] [] Out of room [] Palliative care [] [] Receiving care in room [] Pre-surgical visit [] Trauma [] Long length of stay [x] ICU visit [x] Other: setting up in chair... we sat together for a while Relational/Emotional Strength [] Patient feels connected with others/family/visitors/staff [] Distress [] Loneliness/isolation [] Abandonment Spirituality of Patient [] Person of Charo [] Attends Amish of their Charo [] Believes in Prayer [] Reads Bible or Episcopal materials [] There are Spiritual issues to be addressed Cutter Apprentice Hand Interventions [] Prayer [] Active listening [] Non-anxious presence [] Spiritual/emotional support [] Crisis/trauma care [] Spiritual counseling [] Bereavement support [] Provided bereavement packet [] Provided Bible/devotional materials [] Provided toy/stuffed animal, coloring book to patient or family member [] Provided Communion [] Anointing/[place] [] Salvation [x] Completed spiritual assessment [x] Other: bless with prayer shawl Impact on Illness or Injury [] Angry [] Fearful [x] Anxious [] Often cries [] Exhaustion [] Unable to work [] Unable to attend jewish [] Unable to walk/stand [] Unable to read [] Unable to drive [] Unable to eat/drink [] Unable to sleep [] Unable to be with family [] Patient intubated [] Other: Summary Time spent with patient
--- NOTE | 2022-05-22 11:10 | P.PN_ITS ---
Subjective Subjective: Seen this morning. Patient continues to complain of loose stools. She states she is incontinent and has to wear briefs. She says she has a history of gastroparesis and she feels she is having a flareup. C. difficile was negative. She also states she has a lot of anxiety. Cannot tolerate side effects that she has tried in the past. She says she cannot try Valium either. However she says Ativan works well for her. She says she used to take point 5 in the morning and 1 mg at nighttime. Other than that she feels well. She worked with physical therapy today as well. She says she used to have seizures however is no longer having them. She came off of her medication by herself. Does not follow with a neurologist at this time. No issues reported by nursing staff. Vitals/I&O/Wt Last Vital Signs Temp 97.8 F 05/22/22 10:25 Pulse 93 05/22/22 10:25 Resp 16 05/22/22 10:25 BP 115/82 05/22/22 10:25 Pulse Ox 95 05/22/22 10:25 O2 Del Method 05/22/22 10:25 O2 Flow Rate 3 05/21/22 06:00 05/21/22 05/22/22 05/22/22 22:59 06:59 14:59 Intake Total 690 / 1090 240 / 1330 Output Total 650 / 950 Balance 40 / 140 240 / 380 Weight last 48 hrs Weight 57.969 kg Weight 57.969 kg Physical Exam Narrative: General: Alert oriented x3, patient seen sitting up on edge of bed appearing slightly anxious. HEENT: Normocephalic, atraumatic, EOMI, breathing comfortably on room air. Cardio: Regular rate rhythm, normal S1-S2, Respiratory: There to auscultation bilaterally no wheezes no rhonchi. GI: Abdomen soft, nontender, nondistended, bowel sounds + Extremities: No bilateral lower extremity edema. Data 05/20/22 04:37 05/22/22 02:18 Micro: Microbiology 05/21/22 08:50 C.difficile Toxin B Gene (PCR) - Final Stool - Stool Aspirate A&P Assessment and plan (1) Hypomagnesemia: (2) Hyperglycemia: (3) Transaminitis: (4) Alcoholism: (5) Pneumonia: (6) Intractable vomiting: (7) Seizure: Plan Alcohol-related withdrawal seizures No recurrence of seizure over the weekend Patient has Ativan and phenobarb for as needed use CIWA score 0 at 4 AM today. 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 difficile if she gets recurrent diarrhea I have discontinued azithromycin yesterday, which should improve her diarrheal episodes. C. difficile negative. Hypoxia: Resolved Currently doing well on room air Electrolyte imbalance, normal potassium and magnesium Gi soft diet Full ocde PT eval today Transfer to [facility] today. PT recommends home exercise program. Attestations Medical Necessity Statement*: Transfer to floor today. Monitor in the hospital for another day. Hopefully she is better by tomorrow we will discharge her home. Coding Level of Care Code Acute Code for Chg Fwd Diagnoses Hypomagnesemia E83.42 Hyperglycemia R73.9 Transaminitis R74.01 Alcoholism F10.20 Pneumonia J18.9 Intractable vomiting R11.10 Seizure R56.9
[2022-05-22] MEDS: enoxaparin 40 mg/0.4 mL Syringe SUBCUT (12:59)
[2022-05-22] MEDS: LORazepam 2 mg/mL INJ 1 mL 0.5 MG IVP (16:45)
[2022-05-22] MEDS: ondansetron 2 mg/ML SDV 2 mL 4 MG IVP (17:22)
[2022-05-22] MEDS: aspirin 81 mg EC Tablet PO (20:57)
[2022-05-22] MEDS: metoprolol succinate ER (24 HR) 25 mg Tablet PO (20:57)
[2022-05-23] MEDS: pantoprazole 40 mg SDV IVP ×2 (01:35→11:56)
[2022-05-23 02:40] LABS: Basophils % 0.9 %; Eosinophils # 0.1 10^3/uL (0.0-0.8); Eosinophils % 3.2 %; Hematocrit 36.8 % (37.0-47.0); Hemoglobin 11.8 g/dL (11.5-15.3); Lymphocytes # 1.4 10^3/uL (0.8-4.8); Lymphocytes % 31.2 %; Mean Corpuscular HGB Conc 32.1 g/dL (30.0-36.0); Mean Corpuscular Hemoglobin 32.4 pg (28.0-34.0); Mean Corpuscular Volume 101.1 fl (81-99); Mean Platelet Volume 10.2 fL (7.4-10.4); Monocytes # 0.5 10^3/uL (0.2-0.9); Monocytes % 10.3 %; Neutrophils # 2.37 10^3/uL (1.8-7.7); Neutrophils % 53.9 %; Nucleated Red Blood Cells % 0 %; Platelet Count 182 10^3/cmm (130-400); Red Blood Count 3.64 10^6/uL (4.1-5.3); Red Cell Distribution Width 12.8 % (12.1-15.1); White Blood Count 4.4 10^3/uL (4.0-10.0)
[2022-05-23 03:16] LABS: Anion Gap 13.9 (5-19); Blood Urea Nitrogen 8 mg/dL (6-20); Calcium 8.9 mg/dL (8.5-10.5); Carbon Dioxide 24 mmol/L (22-29); Chloride 104 mmol/L (98-107); Glomerular Filtration Rate 104.6 mL/min (90-130); Glucose 89 mg/dL (65-115); Osmolality Calculated 284 mOsm/kg (285-295); Potassium 3.9 mmol/L (3.5-5.1); Sodium 138 mmol/L (136-145)
[2022-05-23 04:00] VITALS: BP 108/68; PULSE 74; RESP 15; TEMP 36.6; O2SAT 91
[2022-05-23] MEDS: sucralfate 1 gm Tablet PO ×2 (07:20→11:20)
[2022-05-23 08:00] VITALS: BP 122/80; PULSE 92; RESP 18; TEMP 36.6; O2SAT 93
[2022-05-23] MEDS: thiamine 100 mg Tablet PO (08:44)
[2022-05-23] MEDS: folic acid 1 mg Tablet PO (08:44)
[2022-05-23] MEDS: amoxicillin-clav 875-125 mg Tablet 1 TAB PO (08:44)
[2022-05-23] MEDS: multivitamin therapeutic Tablet 1 TAB PO (08:45)
[2022-05-23] MEDS: nicotine 21 mg Patch 1 PATCH TRANSDERMA (08:45)
[2022-05-23] MEDS: ketorolac 30 mg/mL INJ 15 MG IVP (08:49)
[2022-05-23 11:20] VITALS: PULSE 69; RESP 16; O2SAT 98
[2022-05-23] MEDS: ondansetron 2 mg/ML SDV 2 mL 4 MG IVP (11:21)
[2022-05-23] MEDS: albuterol 2.5 mg/3 mL Neb INHALATION (11:32)
[2022-05-23 11:34] VITALS: PULSE 70
--- NOTE | 2022-05-23 11:41 | PM.DCS ---
Discharge Providers Date of Admission: 05/19/22 09:39 Date of Discharge: May 23, 2022 Attending Provider at Admission: Max Martin MD Attending Provider at Discharge: Lian Oakes MD Diagnoses at Discharge Discharge Diagnosis (1) Hypomagnesemia: Status: Acute (2) Hyperglycemia: Status: Acute (3) Transaminitis: Status: Acute (4) Alcoholism: Status: Acute (5) Pneumonia: Status: Acute (6) Intractable vomiting: Status: Acute (7) Seizure: Status: Acute Reason for Visit Reason for Visit: SEIZURE & CP Brief History: Iliana Pete is a 52 year old female presenting to the emergency department with several complaints.? The first complaint is seizures.? She apparently had a seizure around 2 AM according to the patient.? witnessed this, eyes rolled back of her head, she was not responsive, did not remember the event, and had a slow recovery.? She reports at 6 AM she started having repetitive events but it is less clear if these were seizures or not.? She states that for the last 2 to 3 days she has been have some vomiting, as well as diarrhea.? reports a lot of the family members about the flu.? She continues to drink, approximately 4-6 shots as well as some beer through the day and this ingestion may have been decreased with her vomiting.? She is also using some marijuana.? She relates she has had some chills, and sweating.? She denies any significant blood in her emesis or stool.? She has had a little bit of epigastric discomfort. She has prior history of seizure disorder, treated with Keppra.? This was discontinued about 5 years ago after informed decision-making.? It was thought her seizures were due to alcohol at that time.? She does not want to go back on Keppra.? At this point she does want to stop drinking. Hospital Course Hospital Course Patient was initially admitted for several complaints including a possible seizure she may have had. She was mainly treated in the ICU for alcohol withdrawal which has now resolved at this point. She has been seizure-free during admission and hospital stay. She used to be treated with Keppra but this was discontinued 5 years ago after shared decision-making with her doctor. Patient did not want to go back on her Keppra. She remained anxious during hospital stay and required Ativan. She also complained of some loose stools which have also improved at this point. C. difficile was negative. There was a questionable concern of aspiration pneumonia for which she was placed on Augmentin. I will complete 2 more days to complete a 5-day course. Patient has improved significantly and no longer feeling anxious. She states she would like to see her primary care doctor and possibly go back on her Lexapro after she discusses with him. She sees [facility] in [place] and she would like to follow-up with them at discharge. Patient will be discharged home in stable condition at this point. She also worked with physical therapy and halfway or rehab has not been recommended at this time. She is functional and will be discharged home today. All questions answered to patient satisfaction. Physical Exam Narrative: General: Alert oriented x3, patient seen sitting up on edge of bed appearing slightly anxious. HEENT: Normocephalic, atraumatic, EOMI, breathing comfortably on room air. Cardio: Regular rate rhythm, normal S1-S2, Respiratory: There to auscultation bilaterally no wheezes no rhonchi. GI: Abdomen soft, nontender, nondistended, bowel sounds + Extremities: No bilateral lower extremity edema. Discharge Data Studies Completed and Pending Completed Studies During Hospitalization Category Date Time Status CT head wo con* [id number] Stat Cat Scan 05/18/22 11:[address] head wo con* [id number] Stat Cat Scan 05/20/22 03:28 Completed XR chest 1V portable [id number] Stat Exams 05/18/22 09:48 Completed Pending at discharge Category Date Time Status Sputum Culture Routine Lab 05/18/22 12:49 Uncollected Radiology Impressions Chest X-Ray 05/18/22 09:48 IMPRESSION: 1. Small infiltrate in the left lower lung zone suspicious for pneumonia. Head CT 05/20/22 03:28 IMPRESSION: No acute intracranial abnormality. Laboratory Results WBC 4.4 10^3/uL (4.0-10.0) 05/23/22 01:45 RBC 3.64 10^6/uL (4.1-5.3) L 05/23/22 01:45 Hgb 11.8 g/dL (11.5-15.3) 05/23/22 01:45 Hct 36.8 % (37.0-47.0) L 05/23/22 01:45 MCV 101.1 fl (81-99) H 05/23/22 01:45 MCH 32.4 pg (28.0-34.0) 05/23/22 01:45 MCHC 32.1 g/dL (30.0-36.0) 05/23/22 01:45 RDW 12.8 % (12.1-15.1) 05/23/22 01:45 Plt Count 182 10^3/cmm (130-400) 05/23/22 01:45 MPV 10.2 fL (7.4-10.4) 05/23/22 01:45 Neut % (Auto) 53.9 % 05/23/22 01:45 Lymph % (Auto) 31.2 % 05/23/22 01:45 [place] % (Auto) 10.3 % 05/23/22 01:45 Eos % (Auto) 3.2 % 05/23/22 01:45 Baso % (Auto) 0.9 % 05/23/22 01:45 Neut # (Auto) 2.37 10^3/uL (1.8-7.7) 05/23/22 01:45 Lymph # (Auto) 1.4 10^3/uL (0.8-4.8) 05/23/22 01:45 [place] # (Auto) 0.5 10^3/uL (0.2-0.9) 05/23/22 01:45 Eos # (Auto) 0.1 10^3/uL (0.0-0.8) 05/23/22 01:45 Baso # (Auto) 0.0 10^3/uL (0.0-0.1) 05/23/22 01:45 Nucleated RBC % (auto) 0 % 05/23/22 01:45 Nucleated RBCs # 0.0 /100WBC 05/23/22 01:45 Sodium 138 mmol/L (136-145) 05/23/22 01:45 Potassium 3.9 mmol/L (3.5-5.1) 05/23/22 01:45 Chloride 104 mmol/L (98-107) 05/23/22 01:45 Carbon Dioxide 24 mmol/L (22-29) 05/23/22 01:45 Anion Gap 13.9 (5-19) 05/23/22 01:45 BUN 8 mg/dL (6-20) 05/23/22 01:45 Creatinine 0.6 mg/dL (0.5-0.9) 05/23/22 01:45 GFR Calculation 104.6 mL/min (90-130) 05/23/22 01:45 Glucose 89 mg/dL (65-115) 05/23/22 01:45 POC Glucose 77 mg/dL (70-110) 05/20/22 03:16 Calculated Osmolality 284 mOsm/kg (285-295) L 05/23/22 01:45 Calcium 8.9 mg/dL (8.5-10.5) 05/23/22 01:45 Phosphorus 3.4 mg/dL (2.5-4.5) 05/21/22 03:30 Magnesium 1.9 mg/dL (1.7-2.3) 05/21/22 03:30 Total Bilirubin 0.2 mg/dL (0.15-1.2) 05/22/22 02:18 AST 40 U/L (0-32) H 05/22/22 02:18 ALT 31 U/L (0-33) 05/22/22 02:18 Alkaline Phosphatase 127 U/L (35-105) H 05/22/22 02:18 Creatine Kinase 84 U/L (26-192) 05/18/22 10:17 Total Protein 5.6 g/dL (6.6-8.7) L 05/22/22 02:18 Albumin 3.1 g/dL (3.5-5.2) L 05/22/22 02:18 Globulin 2.5 g/dL (1.3-4.6) 05/22/22 02:18 Lipase 24 U/L (13-60) 05/18/22 10:17 TSH 0.88 uIU/mL (0.27-4.20) 05/18/22 11:37 Urine Color Yellow (Yellow) 05/18/22 11:15 Urine Appearance Clear (CLEAR) 05/18/22 11:15 Urine pH 7 (5-7) 05/18/22 11:15 Ur Specific [place] 1.010 (1.005-1.030) 05/18/22 11:15 Urine Protein Trace (Negative) 05/18/22 11:15 Urine Glucose (UA) Norm (Normal) 05/18/22 11:15 Urine Ketones 1+ (Negative) H 05/18/22 11:15 Urine Blood Neg (Negative) 05/18/22 11:15 Urine Nitrate Negative (Negative) 05/18/22 11:15 Urine Bilirubin Neg (Negative) 05/18/22 11:15 Urine Urobilinogen Norm mg/dL (Negative) 05/18/22 11:15 Ur Leukocyte Esterase Trace (Negative) H 05/18/22 11:15 Urine RBC 0-4 /hpf (0-2) H 05/18/22 11:15 Urine WBC None /hpf (0-5) 05/18/22 11:15 Ur Squamous Epith Cells None /hpf (0-5) 05/18/22 11:15 Amorphous Sediment Not Reportable 05/18/22 11:15 Urine Bacteria Trace /hpf (NONE) 05/18/22 11:15 Salicylates 2.4 mg/dL (3-10) L 05/18/22 10:17 Urine Opiates Screen Negative ng/mL (Negative) 05/18/22 11:15 Acetaminophen < 5.0 ug/mL (10-30) L 05/18/22 10:17 Ur Barbiturates Screen Negative ng/mL (Negative) 05/18/22 11:15 Ur Phencyclidine Scrn Negative ng/mL (Negative) 05/18/22 11:15 Ur Amphetamines Screen Negative ng/mL (Negative) 05/18/22 11:15 U Benzodiazepines Scrn Positive ng/mL (Negative) H 05/18/22 11:15 Urine Cocaine Screen Negative ng/mL (Negative) 05/18/22 11:15 U Marijuana (THC) Screen Positive ng/mL (Negative) H 05/18/22 11:15 Ethyl Alcohol < 10 mg/dL (0-10) 05/18/22 10:17 Coronavirus 229E (PCR) Not detected (NOT DETECT) 05/18/22 16:11 Hepatitis A IgM Ab Non-reactive (Nonreactive) 05/18/22 11:37 Hep Bs Antigen Non-reactive (Nonreactive) 05/18/22 11:37 Hep B Core IgM Ab Non-reactive (Nonreactive) 05/18/22 11:37 Hepatitis C Antibody Non-reactive (Nonreactive) 05/18/22 11:37 Influenza Type A Ag negative (Negative) 05/18/22 13:07 Influenza Type B Ag negative (Negative) 05/18/22 13:07 SARS-CoV-2 (PCR) Not detected (NOT DETECT) 05/18/22 16:11 SARS-CoV-2 Ag (Rapid) Negative (Negative) 05/18/22 13:07 Vitals Last Vital Signs Temp 98 F 05/23/22 08:00 Pulse 70 05/23/22 11:34 Resp 16 05/23/22 11:20 BP 122/80 05/23/22 08:00 Pulse Ox 98 05/23/22 11:20 O2 Del Method 05/23/22 11:20 O2 Flow Rate 3 05/21/22 06:00 Discharge Plan Discharge Patient Disposition: Home Condition: Stable Prescriptions: New sucralfate 1 gram Tablet 1 g PO AC&BEDTIME 14 Days Qty: 14 0RF folic acid 1 mg Tablet 1 mg PO DAILY 30 Days Qty: 30 0RF amoxicillin-pot clavulanate 875-125 mg Tablet 1 tab PO BID 2 Days Qty: 4 0RF Vitamin B-1 (mononitrate) 100 mg Tablet 100 mg PO DAILY 30 Days Qty: 30 0RF Continued aspirin 81 mg Tablet,Delayed Release (Dr/Ec) 81 mg PO BEDTIME omeprazole 20 mg Capsule,Delayed Release(Dr/Ec) 20 mg PO BEDTIME metoprolol succinate 25 mg Tablet Extended Release 24 Hr 25 mg PO BEDTIME albuterol sulfate 90 mcg/actuation Hfa Aerosol Inhaler 2 puff INHALATION QID PRN (Reason: Shortness Of Breath) acetaminophen 500 mg Tablet 500 - 1,000 mg PO Q6H PRN (Reason: Pain) Symbicort 160-4.5 mcg/actuation Hfa Aerosol Inhaler 1 inh INHALATION BID Held rosuvastatin [Crestor] 40 mg Tablet 40 mg PO BEDTIME Hold Instructions: see pcp Discontinued ezetimibe [Zetia] 10 mg Tablet 10 mg PO BEDTIME Discharge Orders: Discharge Order (Routine); Ordered 05/23/22 Ordered By: Lian Oakes Other Ambulatory Orders: DME: Walker (Order) Location: None Selected Ordered By: Alejandrina Zendejas Referrals: [facility] ([facility]) [Other] (?Follow up as a walk in at [facility], walk in hours are Sunday-Rony from 7:30AM-3:00PM, first come, first seen. Once you do this assessment you will be referred for appropriate services.) Harvey Acosta FNP [Referring] - 05/30/22 10:00 am ([facility] @ [address] [place] [id number] ) Discharge Diet: Regular and Low Cholesterol Discharge Activity: Resume usual activity Patient Instructions: Alcohol Abuse, Alcohol Withdrawal, Amoxicillin/Clavulanate Potassium (By mouth), Folic Acid (By mouth), Hypertension, Opioid Safety Activity Restrictions/Additional Instructions: Please return to ER should you experience worsening of symptoms or development of new symptoms. Be sure to follow up with your primary care doctor. Discharge Attestations Time Spent in Discharge Care*: other Quality Metrics Clinical Quality Measures [ No reported AMI, CVA or VTE this stay] Coding Level of Care Code Acute Chg FW DC note Diagnoses Hypomagnesemia E83.42 Hyperglycemia R73.9 Transaminitis R74.01 Alcoholism F10.20 Pneumonia J18.9 Intractable vomiting R11.10 Seizure R56.9
[2022-05-23] MEDS: enoxaparin 40 mg/0.4 mL Syringe SUBCUT (11:56)
[2022-05-23 12:00] VITALS: BP 127/78; PULSE 84; O2SAT 96
[2022-05-23 13:44] VITALS: BP 127/78; PULSE 84; O2SAT 96
== END 2022-05-23 13:46 | disposition home or self-care (01) | DRG 896 ==
LOC: ER 11:39 → ICU 12:07 → MEDSURG 05-22 17:32
PROVIDERS: Internal Medicine; Admitting Provider Internal Medicine; Emergency Provider Family Medicine; Visit Provider Internal Medicine
DX: F10.239 Alcohol dependence with withdrawal, unspecified (principal); J69.0 Pneumonitis due to inhalation of food and vomit; G40.89 Other seizures; K29.20 Alcoholic gastritis without bleeding; E83.42 Hypomagnesemia; R73.9 Hyperglycemia, unspecified; F12.90 Cannabis use, unspecified, uncomplicated; F41.9 Anxiety disorder, unspecified; Z79.82 Long term (current) use of aspirin; I25.10 Atherosclerotic heart disease of native coronary artery without angina pectoris; Z95.5 Presence of coronary angioplasty implant and graft; J44.9 Chronic obstructive pulmonary disease, unspecified; M79.7 Fibromyalgia; K21.9 Gastro-esophageal reflux disease without esophagitis; E78.5 Hyperlipidemia, unspecified; F17.200 Nicotine dependence, unspecified, uncomplicated; R32 Unspecified urinary incontinence; R19.7 Diarrhea, unspecified
CPT/HCPCS: 36415; 36416; 70450; 71045; 80048; 80053; 80074; 80306; 80307; 81001; 82550; 82962; 83690; 83735; 84100; 84443; 85025; 87426; 87493; 87635; 87804; 93005; 94640; 96365; 96372; 96374; 96375; 96376; 97110; 97116; 97161; 99285; C9113; G0378; J0456; J0696; J1650; J1885; J2060; J2405; J2550; J2560; J3411; J3475; J7030; J7050; J7613; J7626